=== PATIENT | male | born 1995 | race African-American/Black ===

== ENCOUNTER 2023-07-15 20:47 | Emergency (ER) | payer OTHER ==
--- OUTSIDE RECORDS SUMMARY | 2023-07-15 20:50 | XMS REPORT | Continuity of Care Document ---
Author Name Unknown Address [address] [facility]. [address] th[address] Address [address] [place] [address] 1 [address] [place] [address] Care Team Providers Care Assistant Sales Director Name Role Phone Unavailable Unavailable Unavailable Encounters Start Date/Time End Date/Time Encounter Type Admission Type Attending Clinicians Care Facility Care Department Encounter ID Source 2023-07-14 10:41:31 2023-07-14 10:41:31 Outpatient [facility] [id number] Ryan Watters
[2023-07-15] MEDS ORDERED: DIPHENHYDRAMINE 50 MG/ML VIAL ONE (21:29)
[2023-07-15] MEDS ORDERED: METOCLOPRAMIDE 10 MG/2mL INJ ONE (21:29)
[2023-07-15] MEDS ORDERED: NA CHLORIDE 0.9% 1,000 ML ONE (21:29)
[2023-07-15] MEDS ORDERED: dexAMETHasone 10 MG/ML VIAL ONE (21:29)
--- NOTE | 2023-07-15 21:42 | RAD REPORT ---
EXAM DESCRIPTION: CT - Head Brain Wo Cont - 07/15/2023 9:33 pm CLINICAL HISTORY: HEADACHE Headache, drowsiness COMPARISON: No comparisons TECHNIQUE: All CT scans are performed using dose optimization technique as appropriate and may inclu de automated exposure control or mA/KV adjustment according to patient size. FINDINGS: No intracranial hemorrhage, hydrocephalus or extra-axial fluid collection.No areas of brai n edema or evidence of midline shift. The paranasal sinuses and mastoids are clear. The calvarium is intact. IMPRESSION: No acute intracranial abnormality.
[2023-07-15] MEDS ORDERED: KETOROLAC 30 MG/ML INJ ONE (22:02)
--- NOTE | 2023-07-16 00:33 | ER ---
Nurse's Notes [facility] Name: Jackson Perera Age: 28 yrs Sex: Male : 1995 Arrival Date: 07/15/2023 Time: 20:47 Bed 10 Private MD: Diagnosis: Headache Presentation: 07/15 21:26 Chief complaint: Patient states: Migraine for 2 days. Coronavirus screen: Vaccine vc1 status: Patient reports receiving the 2nd dose of the covid vaccine. [employer] Client denies travel out of the [place] in the last 14 days. At this time, the client does not indicate any symptoms associated with coronavirus-19. Ebola Screen: Patient negative for fever greater than or equal to 101.5 degrees Fahrenheit, and additional compatible Ebola Virus Disease symptoms Patient denies exposure to infectious person. Patient denies travel to an Ebola-affected area in the 21 days before illness onset. No symptoms or risks identified at this time. Initial Sepsis Screen: Does the patient meet any 2 criteria? No. Patient's initial sepsis screen is negative. Does the patient have a suspected source of infection? No. Patient's initial sepsis screen is negative. Risk Assessment: Do you want to hurt yourself or someone else? Patient reports no desire to harm self or others. Onset of symptoms was July 13, 2023. 21:26 Method Of Arrival: Ambulatory vc1 21:26 Acuity: LAUREN 3 vc1 Triage Assessment: 21:28 General: Appears in no apparent distress. uncomfortable, Behavior is flat, quiet. Pain: vc1 Complains of pain in head Pain does not radiate. Pain currently is 10 out of 10 on a pain scale. Pain began 2-3 days ago. Aggravated by repositioning, light, movement Also complains of nausea, photophobia. EENT: No deficits noted. No signs and/or symptoms were reported regarding the EENT system. Neuro: Reports headache photophobia. Cardiovascular: No deficits noted. Respiratory: No deficits noted. GI: No deficits noted. No signs and/or symptoms were reported involving the gastrointestinal system. : No deficits noted. No signs and/or symptoms were reported regarding the genitourinary system. Derm: No deficits noted. No signs and/or symptoms reported regarding the dermatologic system. Musculoskeletal: No deficits noted. No signs and/or symptoms reported regarding the musculoskeletal system. Historical: - Allergies: 21:28 Biaxin; vc1 - Home Meds: 21:27 None [Active]; vc1 - PMHx: 21:27 None; vc1 - PSHx: 21:27 None; vc1 - Immunization history:: Client reports receiving the 2nd dose of the Covid vaccine. - Social history:: Smoking status: Reported history of juuling and/or vaping. Screenin:28 Abuse screen: Denies threats or abuse. Nutritional screening: No deficits noted. vc1 Tuberculosis screening: No symptoms or risk factors identified. 21:29 [facility] ED Fall Risk Assessment (Adult) History of falling in the last 3 months, cp4 including since admission No falls in past 3 months (0 pts) Confusion or Disorientation No (0 pts) Intoxicated or Sedated No (0 pts) Impaired Gait No (0 pts) Mobility Assist Device Used No (0 pt) Altered Elimination No (0 pt) Score/Fall Risk Level 0 - 2 = Low Risk Oriented to surroundings, Maintained a safe environment, Educated pt \T\ family on fall prevention, incl call for assistance when getting out of bed, Assessed \T\ reinforced patient's understanding of fall precautions, Hourly rounding (assess needs \T\ fall precautionary measures) done. Assessment: 21:29 General: Appears in no apparent distress. Behavior is calm, cooperative, appropriate cp4 for age. Pain: Complains of pain in headache Pain currently is 10 out of 10 on a pain scale. Neuro: No deficits noted. 07/16 00:45 Reassessment: Patient appears in no apparent distress at this time. Patient and/or kl family updated on plan of care and expected duration. Pain level reassessed. Patient is alert, oriented x 3, equal unlabored respirations, skin warm/dry/pink. Patient states symptoms have improved. Vital Signs: 07/15 21:26 BP 137 / 75; Pulse 71; Resp 18; Temp 98.4; Pulse Ox 100% ; Weight 102.06 kg; Height 5 vc1 ft. 10 in. ; Pain 1010; 07/16 00:45 BP 109 / 68; Pulse 79; Resp 16; Pulse Ox 100% on R/A; kl 07/15 21:26 Body Mass Index 32.28 (102.06 kg, 177.8 cm) vc1 07/15 21:26 Pain Scale: Adult vc1 Emily Coma Score: 07/15 21:41 Eye Response: spontaneous(4). Motor Response: obeys commands(6). Verbal Response: kb oriented(5). Total: 15. ED Course: 20:52 Patient arrived in ED. mr 20:54 Julian[facility]ZENAIDA [facility] kb 20:54 Cedric Skinner MD is Attending Physician. kb 21:12 Roxanna Andrews is Primary Nurse. cp4 21:25 Inserted saline lock: 20 gauge in right antecubital area, using aseptic technique. vc1 21:27 Triage completed. vc1 21:29 No provider procedures requiring assistance completed. cp4 21:29 Bed in low position. Call light in reach. Side rails up X 1. cp4 21:35 CT Head Brain wo Cont In Process Unspecified. EDMS 22:30 COVID-19 SARS RT PCR Sent. cp4 22:30 Flu Sent. cp4 07/16 00:45 IV discontinued, intact, bleeding controlled, No redness/swelling at site. Pressure kl dressing applied. Administered Medications: 07/15 21:27 Drug: Decadron - Dexamethasone IVP 10 mg IVP once Route: IVP; Site: right antecubital; cp4 21:50 Follow up: Response: No adverse reaction cp4 21:28 Drug: NS 0.9% IV 1000 ml IV at 1000 ml once Route: IV; Rate: 1000 ml; Site: right cp4 antecubital; 23:31 Follow up: Response: No adverse reaction; IV Status: Completed infusion cp4 21:28 Drug: metoCLOPramide IVP 10 mg IVP once; over 1 to 2 minutes Route: IVP; Site: right cp4 antecubital; 21:50 Follow up: Response: No adverse reaction cp4 21:28 Drug: diphenhydrAMINE IVP 12.5 mg IVP once Route: IVP; Site: right antecubital; cp4 21:50 Follow up: Response: No adverse reaction cp4 21:50 Drug: Ketorolac IVP 15 mg IVP once Route: IVP; Site: right antecubital; cp4 21:50 Follow up: Response: No adverse reaction cp4 07/16 00:37 Drug: Fioricet - Esgic PO 325 mg-40 mg-50 mg 1 tab-caps PO once Route: PO; lucho Medication: 07/15 21:29 VIS not applicable for this client. cp4 Outcome: 07/16 00:32 Discharge ordered by . gonzales 00:45 Discharged to home ambulatory, with family, 00:45 Condition: improved 00:45 Discharge instructions given to patient, family, Instructed on discharge instructions, follow up and referral plans. Demonstrated understanding of instructions, follow-up care, 00:45 Patient left the ED. Signatures: Dispatcher [employer] EDMS Julianne Parry, ACCOUNT UNDERWRITER-C ACCOUNT UNDERWRITER-Elise Tracey RN RN Daylin Spencer, Adolfo Reg mr Briana Caba RN RN vcRoxanna Duvall cp4 Corrections: (The following items were deleted from the chart) 07/15 21:27 21:27 Allergies: No Known Allergies; 1 vc1
--- NOTE | 2023-07-16 00:33 | EDPHYS ---
Physician Documentation [facility] Name: Jackson Perera Age: 28 yrs Sex: Male : 1995 Arrival Date: 07/15/2023 Time: 20:47 Bed 10 Private MD: ED Physician Cedric Skinner HPI: 07/15 21:40 This 28 yrs old Black Male presents to ER via Ambulatory with complaints of Headache. kb 21:40 Patient is a 28-year-old male who presents for headache that started yesterday. Reports kb slight nausea, photophobia. Denies vomiting, cough, congestion, fever. Was seen at the [facility] clinic yesterday and tested for flu and COVID but results are not been reported yet. Historical: - Allergies: 21:28 Biaxin; vc1 - Home Meds: 21:27 None [Active]; vc1 - PMHx: 21:27 None; vc1 - PSHx: 21:27 None; vc1 - Immunization history:: Client reports receiving the 2nd dose of the Covid vaccine. - Social history:: Smoking status: Reported history of juuling and/or vaping. ROS: 21:40 Constitutional: Negative for fever, chills, and weight loss, kb 21:40 Abdomen/GI: Positive for nausea, 21:40 Neuro: Positive for headache, 21:40 All other systems are negative, Exam: 21:40 Constitutional: This is a well developed, well nourished patient who is awake, alert, kb and in no acute distress. Head/Face: Normocephalic, atraumatic. Eyes: Pupils equal round and reactive to light, extra-ocular motions intact. Lids and lashes normal. Conjunctiva and sclera are non-icteric and not injected. Cornea within normal limits. Periorbital areas with no swelling, redness, or edema. ENT: Moist Mucous membranes Cardiovascular: Regular rate Respiratory: Respirations even and unlabored. No increased work of breathing. Talking in full sentences Abdomen/GI: Soft, non-tender. No distention Skin: Warm, dry with normal turgor. Normal color. MS/ Extremity: Pulses equal, no cyanosis. Neurovascular intact. Full, normal range of motion. Neuro: Awake and alert, GCS 15, oriented to person, place, time, and situation. Moves all extremities. Normal gait. Vital Signs: 21:26 BP 137 / 75; Pulse 71; Resp 18; Temp 98.4; Pulse Ox 100% ; Weight 102.06 kg; Height 5 vc1 ft. 10 in. ; Pain 05/19; 07/16 00:45 BP 109 / 68; Pulse 79; Resp 16; Pulse Ox 100% on R/A; kl 07/15 21:26 Body Mass Index 32.28 (102.06 kg, 177.8 cm) vc1 07/15 21:26 Pain Scale: Adult vc1 Emily Coma Score: 07/15 21:41 Eye Response: spontaneous(4). Motor Response: obeys commands(6). Verbal Response: kb oriented(5). Total: 15. MDM: 20:54 Patient medically screened. kb 21:41 Differential diagnosis: cluster headache, migraine, tension headache, ICH. Data kb reviewed: vital signs, nurses notes. Historians other than the Patient: Parent: Mother. 23:12 Counseling: I had a detailed discussion with the patient and/or guardian regarding the kb historical points, exam findings, and any diagnostic results supporting the discharge/admit diagnosis, lab results, the need for outpatient follow up, a family practitioner, to return to the emergency department if symptoms worsen or persist or if there are any questions or concerns that arise at home. Response to treatment: the patient's symptoms have markedly improved after treatment. 07/15 22:17 Order name: Flu; Complete Time: 00:32 kb 07/15 22:17 Order name: COVID-19 SARS RT PCR; Complete Time: 23:39 kb 07/15 21:12 Order name: CT Head Brain wo Cont; Complete Time: 21:45 kb 07/15 21:12 Order name: IV Start; Complete Time: 21:27 kb Administered Medications: 21:27 Drug: Decadron - Dexamethasone IVP 10 mg IVP once Route: IVP; Site: right antecubital; cp4 21:50 Follow up: Response: No adverse reaction cp4 21:28 Drug: NS 0.9% IV 1000 ml IV at 1000 ml once Route: IV; Rate: 1000 ml; Site: right cp4 antecubital; 23:31 Follow up: Response: No adverse reaction; IV Status: Completed infusion cp4 21:28 Drug: metoCLOPramide IVP 10 mg IVP once; over 1 to 2 minutes Route: IVP; Site: right cp4 antecubital; 21:50 Follow up: Response: No adverse reaction cp4 21:28 Drug: diphenhydrAMINE IVP 12.5 mg IVP once Route: IVP; Site: right antecubital; cp4 21:50 Follow up: Response: No adverse reaction cp4 21:50 Drug: Ketorolac IVP 15 mg IVP once Route: IVP; Site: right antecubital; cp4 21:50 Follow up: Response: No adverse reaction cp4 07/16 00:37 Drug: Fioricet - Esgic PO 325 mg-40 mg-50 mg 1 tab-caps PO once Route: PO; lucho Disposition: 07/15 23:10 Co-signature as Attending Physician, Cedric Skinner MD I agree with the assessment sp4 and plan of care. I reviewed the patient's care provided by the Advanced Practice Provider and agree with the diagnosis and treatment plan. Disposition Summary: 07/16/23 00:32 Discharge Ordered Notes: Location: Home kb Condition: Stable kb Diagnosis - Headache kb Followup: kb - With: Emergency Department - When: As needed - Reason: Worsening of condition Followup: kb - With: Private Physician - When: 2 - 3 days - Reason: Recheck today's complaints, Continuance of care, Re-evaluation by your physician Discharge Instructions: - Discharge Summary Sheet kb - General Headache Without Cause, [id number] kb Forms: - Medication Reconciliation Form kb - Thank You Letter kb - Antibiotic Education kb - Prescription Opioid Use kb - Patient Portal Instructions kb - Leadership Thank You Letter kb - Work release form Signatures: Dispatcher [employer] Julianne Deras, LUKAS-C QUARTER SUPERVISOR-Elise Tracey RN RN Briana Hearn RN RN Cedric Frederick MD MD sp4 Roxanna Andrews 4 Corrections: (The following items were deleted from the chart) 21:27 21:27 Allergies: No Known Allergies; vc1 vc1
[2023-07-16] MEDS ORDERED: ACETAMIN/CAFFEINE/BUTALB TAB PO ONE (00:51)
[2023-07-16 01:28] VITALS: TEMP 98.4; O2SAT 100
[2023-07-16 01:29] VITALS: BP 109/68
== END 2023-07-16 00:45 | disposition home or self-care (01) ==
LOC: ER 20:47
DX: R51.9 Headache, unspecified (principal); R11.0 Nausea; Z11.52 Encounter for screening for COVID-19; Z88.6 Allergy status to analgesic agent
CPT/HCPCS: 96361; 87635; 87804 ×2; 70450; 96375; 96374; 99284; J2765; J1200; J1100; J7030